=== PATIENT | male | born 1965 | race Caucasian/White ===

== ENCOUNTER 2020-11-28 14:02 | Emergency (ER) | payer MEDICAID ==
[~2020-11-28] VITALS: Ht 190.5 cm; Wt 106.6 kg
[2020-11-28 14:02] VITALS: BP_SYST 147
[2020-11-28 14:41] VITALS: BP_SYST 147
== END 2020-11-28 14:40 | disposition home or self-care (01) ==
LOC: SED 14:02
DX: I10 Essential (primary) hypertension (principal); Z88.6 Allergy status to analgesic agent
CPT/HCPCS: 99281